=== PATIENT | male | born 1950 | race African-American/Black ===

== ENCOUNTER 2019-02-17 11:59 | Outpatient (CLI) | payer MEDICARE ==
--- NOTE | 2019-02-17 13:10 | MRI ---
LUMBAR SPINE MRI WITHOUT CONTRAST: DATE: 02/17/2019. COMPARISON: None. HISTORY: Low back pain radiating into bilateral lower extremities. TECHNIQUE: Multiplanar multisequence MR imaging of the lumbar spine is obtained without contrast. FINDINGS: Sagittal STIR imaging demonstrates minimal endplate edema, likely on the basis of degenerative change , at L2, L3, L4, and L5. No anterolisthesis or retrolisthesis is noted within the lumbar spine. There is mild anterolisthesis of L4 on L5 measuring in the 3-4 mm range. Assuming 5 lumbar type vertebral bodies, the conus medullaris terminates at the L1-2 level. T12-L1: Bilateral facet hypertrophy, left greater than right. Mild disc space narrowing with disc bletran iccation. No significant central canal or neural foraminal stenosis. L1-2: There is bilateral facet hypertrophy, left greater than right. No significant central canal or neural foraminal stenosis. L2-3: There is disc space narrowing and disc desiccation with mild bilateral facet hypertrophy. Mild disc bulge noted with a small foraminal disc protrusion on the right. There is no significant central canal or neural foraminal stenosis. L3-4: Disc space narrowing and disc desiccation noted. Mild bilateral facet hypertrophy. No significa nt central canal stenosis. Mild bilateral neural foraminal stenosis. L4-5: There is bilateral facet hypertrophy and hypertrophy of the ligamentum flavum. There is disc sp vu narrowing and disc desiccation. No significant central canal stenosis. Mild bilateral neural foraminal stenosis. L5-S1: There is disc space narrowing and disc desiccation with disc bulge and central annular tear. N o significant central canal stenosis. Vacuum disc formation noted. Bilateral facet hypertrophy present with moderate bilateral neural foraminal stenosis, left greater than right. The visualized retroperitoneal structures demonstrate no acute findings. There is a retroaortic left renal vein. IMPRESSION: Lumbar spine degenerative change as described above. Transcribed Date/Time: 02/17/2019 1:16 PM
== END 2019-02-17 12:00 | disposition home or self-care (01) ==
LOC: SCSMRI 11:59
PROVIDERS: ATTEND Family Medicine
DX: M54.5 Low back pain (principal); M47.816 Spondylosis without myelopathy or radiculopathy, lumbar region
CPT/HCPCS: 72148

== ENCOUNTER 2019-06-04 12:47 | Outpatient (CLI) | payer MEDICARE ==
--- NOTE | 2019-06-04 14:34 | MRI ---
MRI CERVICAL SPINE WITHOUT CONTRAST: INDICATION: Cervical radiculopathy. FINDINGS: The cervical vertebrae maintain normal height and alignment. There are degenerative changes with ant erior osteophytes. Loss of disk space at all levels below C4. Mild degenerative anterior wedging at C4, C5, and C6. At C2-3, no significant disk bulge or spondylosis. At C3-4, minimal disk bulge and spondylosis slightly more pronounced to the right. Mild effacement a nterior subarachnoid space. Right foraminal stenosis due to facet and uncinate hypertrophy. At C4-5, disk bulge and spondylosis efface the anterior subarachnoid space and abut the cord. Bilate ral foraminal stenosis due to facet and uncinate hypertrophy. At C5-6, disk bulge and spondylosis efface the anterior subarachnoid space. Bilateral foraminal sten osis due to facet and uncinate hypertrophy. At C6-7, disk bulge and spondylitic change abut and mildly compress the anterior cord. Mild bilatera l foraminal narrowing. At C7-T1, disk bulge and spondylosis abut and mildly flatten the anterior cord. Foramen are not well evaluated at this level. Cord signal appears normally maintained. IMPRESSION: 1. Posterior disk bulge and spondylitic changes are seen with spinal canal encroachment at all level s below C4. Findings are most pronounced at C6-7 and C7-T1 as described above. 2. Incidentally noted is a subcutaneous mass in the subcutaneous tissues just beneath the skin poste riorly to the right of midline at the C4 level. This measures approximately 2.6 cm. An epidermal in clusion cyst or sebaceous cyst would be suspected. Recommend clinical correlation. POS: [facility]
== END 2019-06-04 12:48 | disposition home or self-care (01) ==
LOC: TBSIIMAG 12:47
PROVIDERS: ATTEND Neurological Surgery
DX: M50.11 Cervical disc disorder with radiculopathy, high cervical region (principal); M46.92 Unspecified inflammatory spondylopathy, cervical region
CPT/HCPCS: 72141